=== PATIENT | female | born 1960 | race Hispanic/Latino ===

== ENCOUNTER → 2023-04-13 | Outpatient (CLI) | payer OTHER ==
[2023-04-13 12:43] LABS: HEMOGLOBIN A1C 5.9 % (4.0-6.0)
[2023-04-13 13:02] LABS: ALBUMIN 3.9 g/dL (3.5-5.0); CREATININE 1.1 mg/dL (0.5-1.5); POTASSIUM 4.9 mmol/L (3.5-5.1); TOTAL PROTEIN, SERUM 8.4 g/dL (6.0-8.3)
== END | disposition home or self-care (01) ==
LOC: LAB 08:41
PROVIDERS: ATTEND Physician Assistant
DX: R07.9 Chest pain, unspecified (principal); E78.5 Hyperlipidemia, unspecified; E11.9 Type 2 diabetes mellitus without complications
CPT/HCPCS: 36415; 80053; 80061; 83036; 84484

== ENCOUNTER 2023-04-14 11:33 | Inpatient (IN) | payer OTHER ==
[~2023-04-14] VITALS: Ht 152.4 cm; Wt 67.7 kg
[2023-04-14 12:52] LABS: BASOPHILS # (AUTO) 0.03 K/uL (0.00-0.20); BASOPHILS % (AUTO) 0.2 % (0.0-5.0); EOSINOPHILS % (AUTO) 0.8 % (0.0-8.0); HEMATOCRIT 45.1 % (36-48); IMMATURE GRANULOCYTE ABSOLUTE 0.06 K/uL (0-1); LYMPHOCYTES # (AUTO) 1.3 K/uL (1.0-4.8); LYMPHOCYTES % (AUTO) 10.3 % (21.0-51.0); MEAN CORPUSCULAR HEMOGLOBIN 29.2 pg (27.0-33.0); MEAN CORPUSCULAR HGB CONC 33.7 g/dL (32.0-36.0); MEAN CORPUSCULAR VOLUME 86.7 fL (79-99); MONOCYTES # (AUTO) 0.8 K/uL (0.1-1.0); MONOCYTES % (AUTO) 5.9 % (3.0-13.0); NEUTROPHILS # (AUTO) 10.7 K/uL (1.8-7.7); NEUTROPHILS % (AUTO) 82.3 % (40.0-77.0); PLATELET COUNT (AUTO) 303 K/uL (130-400); RED CELL DISTRIBUTION WIDTH 13.6 % (11.0-15.5)
[2023-04-14 13:02] LABS: INR 0.93 (0.85-1.15); PROTHROMBIN TIME 10.8 SEC (9.6-11.6)
[2023-04-14 13:03] LABS: PARTIAL THROMBOPLASTIN TIME 27.2 SEC (26.3-35.5)
[2023-04-14 13:56] LABS: ALBUMIN 3.5 g/dL (3.5-5.0); BILIRUBIN,TOTAL 0.4 mg/dL (0.2-1.0); POTASSIUM 4.2 mmol/L (3.5-5.1)
[2023-04-14 14:23] LABS: APPEARANCE,URINE CLEAR (CLEAR); BILIRUBIN,URINE NEGATIVE (NEGATIVE); COLOR,URINE COLORLESS (YELLOW); GLUCOSE, URINE (UA) NEGATIVE (NEGATIVE); KETONES,URINE NEGATIVE (NEGATIVE); LEUKOCYTE ESTERASE ,URINE NEGATIVE Leu/uL (NEGATIVE); NITRATE,URINE NEGATIVE (NEGATIVE); OCCULT BLOOD,URINE NEGATIVE (NEGATIVE); PROTEIN,URINE NEGATIVE (NEGATIVE); UROBILINOGEN,URINE 0.2 mg/dL (0.2-1.0)
[2023-04-14 14:31] LABS: ADD UA MICROSCOPIC YES
[2023-04-14 14:42] LABS: SQUAMOUS EPITHELIAL CELL,UR RARE /HPF (0-2); WBC,URINE 0-1 /HPF (0-1)
[2023-04-14] MEDS ORDERED: 0.9%NACL 1000ML 1,000 ML IV ONE (15:00)
[2023-04-14] MEDS ORDERED: ONDANSETRON 4MG INJ IVP PRN (15:30)
[2023-04-14] MEDS ORDERED: ACETAMINOPHEN 325 MG TAB PO PRN ×2 (15:30)
[2023-04-14] MEDS: INSULIN HUMULIN R 100 UNIT/ML 3ML SQ SCH ×3 (15:39→21:41)
[2023-04-14] MEDS ORDERED: PEG 3350/NA SULF,BICARB,CL/KCL 4000 ML SOLN PO ONE (17:00)
[2023-04-14] MEDS ORDERED: LACTULOSE 20 GM/30 ML UDCUP PO ONE ×2 (17:00→19:00)
[2023-04-14] MEDS ORDERED: BISACODYL 5 MG TABLET.DR PO SCH (17:00)
[2023-04-14] MEDS: 0.9%NACL 1000ML 1,000 ML IV SCH (17:11)
[2023-04-14] MEDS ORDERED: MORPHINE 2 MG SYG IVP ONE (18:30)
[2023-04-14] MEDS: ATORVASTATIN 40 MG TABLET PO SCH (21:00)
[2023-04-14] MEDS: GABAPENTIN 100 MG CAPSULE PO SCH (21:00)
[2023-04-14] MEDS: BISACODYL 5 MG TABLET.DR PO SCH (21:41)
[2023-04-14 22:32] LABS: SARS-CoV-2, RNA, NAAT NEGATIVE SARS CoV-2 (NEGATIVE)
[2023-04-15] VITALS (26 sets, daily range): BP systolic 129–167; BP diastolic 77–97; PULSE 74–107; RESP 10–20; O2SAT 96–97
[2023-04-15] MEDS: 0.9%NACL 1000ML 1,000 ML IV SCH (01:21)
[2023-04-15] MEDS: BISACODYL 5 MG TABLET.DR PO SCH ×5 (06:20→22:00)
[2023-04-15] MEDS ORDERED: REGADENOSON 0.4 MG/5 ML PF SYG IVP SCH (07:30)
[2023-04-15] MEDS: ASPIRIN 81 MG EC TAB PO SCH (09:00)
[2023-04-15] MEDS ORDERED: METOPROLOL SUCCINATE 25 MG TAB.SR.24H PO SCH (09:00)
[2023-04-15 09:10] LABS: BASOPHILS # (AUTO) 0.05 K/uL (0.00-0.20); BASOPHILS % (AUTO) 0.4 % (0.0-5.0); EOSINOPHILS # (AUTO) 0.05 K/uL (0.00-0.70); EOSINOPHILS % (AUTO) 0.4 % (0.0-8.0); HEMATOCRIT 44.9 % (36-48); IMMATURE GRANULOCYTE ABSOLUTE 0.04 K/uL (0-1); LYMPHOCYTES # (AUTO) 2.3 K/uL (1.0-4.8); LYMPHOCYTES % (AUTO) 18.8 % (21.0-51.0); MEAN CORPUSCULAR HEMOGLOBIN 29.6 pg (27.0-33.0); MEAN CORPUSCULAR VOLUME 89.8 fL (79-99); MONOCYTES # (AUTO) 0.7 K/uL (0.1-1.0); MONOCYTES % (AUTO) 5.6 % (3.0-13.0); NEUTROPHILS # (AUTO) 9.2 K/uL (1.8-7.7); NEUTROPHILS % (AUTO) 74.5 % (40.0-77.0); PLATELET COUNT (AUTO) 293 K/uL (130-400); WHITE BLOOD COUNT (AUTO) 12.3 K/uL (4.8-10.8)
[2023-04-15] MEDS: PANTOPRAZOLE 40 MG/VIAL IVP SCH (09:12)
[2023-04-15] MEDS: ASPIRIN 81MG CHEW TAB PO SCH (09:13)
[2023-04-15] MEDS: GABAPENTIN 100 MG CAPSULE PO SCH ×3 (09:14→20:49)
[2023-04-15 09:26] LABS: HEMOGLOBIN A1C 5.9 % (4.0-6.0)
[2023-04-15 09:27] LABS: ALBUMIN 3.5 g/dL (3.5-5.0); BILIRUBIN,TOTAL 0.5 mg/dL (0.2-1.0); CREATININE 1.3 mg/dL (0.5-1.5); MAGNESIUM 1.7 mg/dL (1.80-2.40); POTASSIUM 3.9 mmol/L (3.5-5.1); TOTAL PROTEIN, SERUM 7.7 g/dL (6.0-8.3)
[2023-04-15] MEDS: INSULIN HUMULIN R 100 UNIT/ML 3ML SQ SCH ×3 (11:30→21:00)
[2023-04-15] MEDS: MORPHINE 2 MG SYG IVP PRN ×2 (11:54→22:54)
[2023-04-15] MEDS ORDERED: PROPOFOL 10 MG/ML 20ML VIAL IV ONE (13:03)
[2023-04-15] MEDS ORDERED: FENTANYL CITRATE PF 50 MCG/1 ML 2ML VIAL ONE (13:03)
[2023-04-15] MEDS ORDERED: LIDOCAINE PF 100MG/5ML (2%) SYRINGE 5ML ONE (13:04)
[2023-04-15] MEDS ORDERED: LACTULOSE 20 GM/30 ML UDCUP PO ONE (17:30)
[2023-04-15] MEDS ORDERED: PEG 3350/NA SULF,BICARB,CL/KCL 4000 ML SOLN PO ONE (17:30)
[2023-04-15] MEDS: ATORVASTATIN 40 MG TABLET PO SCH (20:49)
[2023-04-15] MEDS: METOPROLOL SUCCINATE 25 MG TAB.SR.24H PO SCH (20:50)
[2023-04-15] MEDS ORDERED: BISACODYL 5 MG TABLET.DR PO SCH (22:00)
[2023-04-16] VITALS (24 sets, daily range): BP systolic 114–165; BP diastolic 65–92; PULSE 68–92; RESP 15–20; O2SAT 98
[2023-04-16] MEDS: BISACODYL 5 MG TABLET.DR PO SCH ×4 (06:00→22:00)
[2023-04-16] MEDS: INSULIN HUMULIN R 100 UNIT/ML 3ML SQ SCH ×4 (06:15→21:00)
[2023-04-16] MEDS: ASPIRIN 81 MG EC TAB PO SCH (09:00)
[2023-04-16] MEDS: 0.9%NACL 1000ML 1,000 ML IV SCH (09:00)
[2023-04-16] MEDS: ASPIRIN 81MG CHEW TAB PO SCH (09:00)
[2023-04-16] MEDS: GABAPENTIN 100 MG CAPSULE PO SCH ×3 (09:00→21:00)
[2023-04-16] MEDS: METOPROLOL SUCCINATE 25 MG TAB.SR.24H PO SCH ×2 (09:20→22:06)
[2023-04-16] MEDS: PANTOPRAZOLE 40 MG/VIAL IVP SCH (10:08)
[2023-04-16 10:15] LABS: RHEUMATOID ARTHRITIS FACTOR <10.0 IU/mL (<14.0)
[2023-04-16] MEDS: MORPHINE 2 MG SYG IVP PRN (10:42)
[2023-04-16 10:54] LABS: CREATININE 1.3 mg/dL (0.5-1.5); POTASSIUM 4.4 mmol/L (3.5-5.1)
[2023-04-16] MEDS ORDERED: LIDOCAINE PF 100MG/5ML (2%) SYRINGE 5ML ONE (13:10)
[2023-04-16] MEDS ORDERED: PROPOFOL 10 MG/ML 20ML VIAL IV ONE (13:10)
[2023-04-16] MEDS ORDERED: MELATONIN 5 MG TABLET PO SCH (21:00)
[2023-04-16] MEDS: ATORVASTATIN 40 MG TABLET PO SCH (22:05)
[2023-04-17 03:45] VITALS: BP 143/77; PULSE 85; RESP 23
[2023-04-17] MEDS: 0.9%NACL 1000ML 1,000 ML IV SCH (05:00)
[2023-04-17] MEDS: MORPHINE 2 MG SYG IVP PRN ×2 (05:18→09:44)
[2023-04-17] MEDS: INSULIN HUMULIN R 100 UNIT/ML 3ML SQ SCH ×2 (05:44→11:30)
[2023-04-17 08:00] VITALS: BP 155/89; PULSE 71; RESP 18; O2SAT 99
[2023-04-17] MEDS: ASPIRIN 81MG CHEW TAB PO SCH (09:00)
[2023-04-17] MEDS: PANTOPRAZOLE 40 MG/VIAL IVP SCH (09:42)
[2023-04-17] MEDS: METOPROLOL SUCCINATE 25 MG TAB.SR.24H PO SCH (09:42)
[2023-04-17] MEDS: GABAPENTIN 100 MG CAPSULE PO SCH ×2 (09:43→14:12)
[2023-04-17] MEDS: ASPIRIN 81 MG EC TAB PO SCH (09:43)
[2023-04-17 12:20] VITALS: BP 162/81; PULSE 86; RESP 19
[2023-04-19 15:13] LABS: ATYPICAL P-ANCA AB <1:20 titer (Neg:<1:20); CYTOPLASMIC (C-ANCA) AB, IGG <1:20 titer (Neg:<1:20)
== END 2023-04-17 15:30 | disposition home or self-care (01) | DRG 368 ==
LOC: EDH 11:33 → OBSVTOIN 15:09 → EDHIP 15:09 → 3BH 04-15 00:30
PROVIDERS: ADMIT Internal Medicine Infectious Disease; ATTEND Internal Medicine Infectious Disease
PROC: 0DB98ZX Excision of Duodenum, Via Natural or Artificial Opening Endoscopic, Diagnostic (ICD-10-PCS; principal; 2023-04-15)
PROC: 0DB78ZX Excision of Stomach, Pylorus, Via Natural or Artificial Opening Endoscopic, Diagnostic (ICD-10-PCS; 2023-04-15)
PROC: 0DB58ZX Excision of Esophagus, Via Natural or Artificial Opening Endoscopic, Diagnostic (ICD-10-PCS; 2023-04-15)
PROC: 4A02XM4 Measurement of Cardiac Total Activity, External Approach (ICD-10-PCS; 2023-04-15)
PROC: 3E073KZ Introduction of Other Diagnostic Substance into Coronary Artery, Percutaneous Approach (ICD-10-PCS; 2023-04-15)
DX: K21.01 Gastro-esophageal reflux disease with esophagitis, with bleeding (principal); K29.01 Acute gastritis with bleeding; A04.8 Other specified bacterial intestinal infections; B02.29 Other postherpetic nervous system involvement; I31.39 Other pericardial effusion (noninflammatory); E11.9 Type 2 diabetes mellitus without complications; E78.5 Hyperlipidemia, unspecified; E86.0 Dehydration; F31.9 Bipolar disorder, unspecified; I10 Essential (primary) hypertension; K64.0 First degree hemorrhoids; Z20.822 Contact with and (suspected) exposure to COVID-19; I25.10 Atherosclerotic heart disease of native coronary artery without angina pectoris; E66.9 Obesity, unspecified; K46.9 Unspecified abdominal hernia without obstruction or gangrene; R13.10 Dysphagia, unspecified; Z83.3 Family history of diabetes mellitus; Z91.148 Patient's other noncompliance with medication regimen for other reason; Z68.29 Body mass index [BMI] 29.0-29.9, adult
CPT/HCPCS: 36415; 43239; 45378; 71045; 78452; 80048; 80053; 80061; 81001; 82270; 82550; 82948; 83036; 83735; 83874; 83880; 84484; 85025; 85610; 85730; 86038; 86200; 86215; 86235; 86255; 86431; 87040; 87635; 93005; 93017; 93306; 96374; A4606; A9500; C9113; G0378; J2001; J2270; J2704; J2785; J3010; J7030; A4215; A4222; A4223; A4620; J3490

== ENCOUNTER 2023-09-14 09:26 | Emergency (ER) | payer OTHER ==
[~2023-09-14] VITALS: Ht 152.4 cm; Wt 75.3 kg
[~2023-09-14 09:26] MED LIST: HYD25 PO
[2023-09-14 09:32] VITALS: BP 162/110; PULSE 108; RESP 16
[2023-09-14 10:00] LABS: BASOPHILS # (AUTO) 0.03 K/uL (0.00-0.20); BASOPHILS % (AUTO) 0.4 % (0.0-5.0); EOSINOPHILS # (AUTO) 0.06 K/uL (0.00-0.70); EOSINOPHILS % (AUTO) 0.9 % (0.0-8.0); HEMATOCRIT 42.2 % (36-48); IMMATURE GRANULOCYTE ABSOLUTE 0.02 K/uL (0-1); LYMPHOCYTES # (AUTO) 1.3 K/uL (1.0-4.8); LYMPHOCYTES % (AUTO) 19.1 % (21.0-51.0); MEAN CORPUSCULAR HEMOGLOBIN 30.2 pg (27.0-33.0); MEAN CORPUSCULAR HGB CONC 33.9 g/dL (32.0-36.0); MONOCYTES # (AUTO) 0.4 K/uL (0.1-1.0); MONOCYTES % (AUTO) 6.3 % (3.0-13.0); NEUTROPHILS # (AUTO) 4.9 K/uL (1.8-7.7); PLATELET COUNT (AUTO) 272 K/uL (130-400); RED BLOOD CELL COUNT(AUTO) 4.74 MIL/uL (4.00-5.50); RED CELL DISTRIBUTION WIDTH 12.1 % (11.0-15.5); WHITE BLOOD COUNT (AUTO) 6.7 K/uL (4.8-10.8)
[2023-09-14 10:04] LABS: CREATININE 0.9 mg/dL (0.5-1.5); POTASSIUM 3.9 mmol/L (3.5-5.1)
[2023-09-14 10:09] LABS: ALBUMIN 3.9 g/dL (3.5-5.0); BILIRUBIN,TOTAL 0.3 mg/dL (0.2-1.0); TOTAL PROTEIN, SERUM 8.3 g/dL (6.0-8.3)
[2023-09-14 10:15] LABS: APPEARANCE,URINE CLEAR (CLEAR); BILIRUBIN,URINE NEGATIVE (NEGATIVE); COLOR,URINE COLORLESS (YELLOW); GLUCOSE, URINE (UA) NEGATIVE (NEGATIVE); KETONES,URINE NEGATIVE (NEGATIVE); LEUKOCYTE ESTERASE ,URINE NEGATIVE Leu/uL (NEGATIVE); NITRATE,URINE NEGATIVE (NEGATIVE); OCCULT BLOOD,URINE NEGATIVE (NEGATIVE); PH,URINE 6.5 (5.0-8.0); PROTEIN,URINE NEGATIVE (NEGATIVE); UROBILINOGEN,URINE 0.2 mg/dL (0.2-1.0)
[2023-09-14] MEDS ORDERED: KETOROLAC 15MG/ML VIAL (15MG/ML) IV ONE (10:30)
[2023-09-14 10:37] LABS: ADD UA MICROSCOPIC NO
== END 2023-09-14 13:13 | disposition home or self-care (01) ==
LOC: EDH 09:26
DX: R07.89 Other chest pain (principal); M25.512 Pain in left shoulder; E11.9 Type 2 diabetes mellitus without complications
CPT/HCPCS: 99285; 96374; 71045; 84484 ×2; 80053; 83880; 85025; 81003; 36415; 73030; 93005; J1885

== ENCOUNTER 2023-12-03 20:02 | Emergency (ER) | payer BC, OTHER ==
[~2023-12-03] VITALS: Ht 152.4 cm; Wt 77.1 kg
[2023-12-03 21:55] VITALS: BP 144/84; PULSE 91; RESP 16; O2SAT 97
[2023-12-03 21:55] LABS: BASOPHILS # (AUTO) 0.03 K/uL (0.00-0.20); BASOPHILS % (AUTO) 0.4 % (0.0-5.0); EOSINOPHILS # (AUTO) 0.12 K/uL (0.00-0.70); EOSINOPHILS % (AUTO) 1.4 % (0.0-8.0); IMMATURE GRANULOCYTE ABSOLUTE 0.01 K/uL (0-1); LYMPHOCYTES # (AUTO) 2.1 K/uL (1.0-4.8); LYMPHOCYTES % (AUTO) 25.6 % (21.0-51.0); MEAN CORPUSCULAR HEMOGLOBIN 30.6 pg (27.0-33.0); MEAN CORPUSCULAR HGB CONC 34.6 g/dL (32.0-36.0); MEAN CORPUSCULAR VOLUME 88.4 fL (79-99); MONOCYTES # (AUTO) 0.6 K/uL (0.1-1.0); MONOCYTES % (AUTO) 7.1 % (3.0-13.0); NEUTROPHILS # (AUTO) 5.4 K/uL (1.8-7.7); NEUTROPHILS % (AUTO) 65.4 % (40.0-77.0); PLATELET COUNT (AUTO) 256 K/uL (130-400); RED BLOOD CELL COUNT(AUTO) 4.64 MIL/uL (4.00-5.50); WHITE BLOOD COUNT (AUTO) 8.3 K/uL (4.8-10.8)
[2023-12-03 21:56] LABS: APPEARANCE,URINE CLEAR (CLEAR); BILIRUBIN,URINE NEGATIVE (NEGATIVE); COLOR,URINE COLORLESS (YELLOW); GLUCOSE, URINE (UA) NEGATIVE (NEGATIVE); KETONES,URINE NEGATIVE (NEGATIVE); LEUKOCYTE ESTERASE ,URINE NEGATIVE Leu/uL (NEGATIVE); NITRATE,URINE NEGATIVE (NEGATIVE); OCCULT BLOOD,URINE NEGATIVE (NEGATIVE); PH,URINE 5.5 (5.0-8.0); PROTEIN,URINE NEGATIVE (NEGATIVE); UROBILINOGEN,URINE 0.2 mg/dL (0.2-1.0)
[2023-12-03 21:57] LABS: ADD UA MICROSCOPIC NO
[2023-12-03 22:07] LABS: CREATININE 1.3 mg/dL (0.5-1.0); POTASSIUM 3.6 mmol/L (3.5-5.1)
[2023-12-03 22:21] LABS: THYROID STIMULATING HORMONE 0.33 uIU/mL (0.36-3.74)
== END 2023-12-03 23:12 | disposition home or self-care (01) ==
LOC: EDH 20:02
DX: F03.90 Unspecified dementia, unspecified severity, without behavioral disturbance, psychotic disturbance, mood disturbance, and anxiety (principal); E11.9 Type 2 diabetes mellitus without complications; G89.29 Other chronic pain
CPT/HCPCS: 36415; 80048; 81003; 83735; 84443; 85025

== ENCOUNTER 2024-10-18 16:40 | Emergency (ER) | payer BC ==
[~2024-10-18] VITALS: Ht 152.4 cm; Wt 81.6 kg
[2024-10-18 17:27] VITALS: BP 132/87; PULSE 112; RESP 20; TEMP 99.8
[2024-10-18] MEDS ORDERED: IpraTROPium/alBUTERol SULFATE 3 ML SOLUTION IH SCH (18:00)
--- NOTE | 2024-10-18 21:40 | NUR ---
notified by registration, patient eloped at 1923
== END 2024-10-18 19:23 | disposition left against medical advice (07) ==
LOC: EDH 16:40
DX: J20.9 Acute bronchitis, unspecified (principal); Z53.21 Procedure and treatment not carried out due to patient leaving prior to being seen by health care provider